=== PATIENT | male | born 1980 | race Caucasian/White ===

== ENCOUNTER 2017-07-31 17:32 | Emergency (ER) | payer OTHER ==
[~2017-07-31] VITALS: Ht 185.4 cm; Wt 112.0 kg
[2017-07-31] MEDS ORDERED: AUGMENTIN500 MG PO (18:22)
[2017-07-31 19:12] VITALS: BP 158/98
== END 2017-07-31 19:12 | disposition home or self-care (01) ==
LOC: EME 17:32
DX: S01.551A Open bite of lip, initial encounter (principal); W54.0XXA Bitten by dog, initial encounter; Z23 Encounter for immunization
CPT/HCPCS: 99281; 99283